=== PATIENT | female | born 1985 ===

== ENCOUNTER 2016-11-28 06:44 | Day surgery (SDC) | payer OTHER ==
[2016-11-15 08:08] VITALS: BMI 28.3
[2016-11-28] MEDS ORDERED: Midazolam 2 MG/2 ML VIAL ONE (08:30)
[2016-11-28] MEDS ORDERED: Propofol 10 mg/ml Inj (20 ML) ONE (08:30)
[2016-11-28] MEDS ORDERED: Lactated Ringer's 1,000 ML IV ONE (08:30)
[2016-11-28] MEDS ORDERED: ceFAZolin IV 2 gm in Dextrose 50 ML IVPB ONE (08:45)
[2016-11-28] MEDS ORDERED: Bupivacaine/Epi 0.25%-1:200,000 10 ml PF inj IJ ONE (09:07)
[2016-11-28] MEDS ORDERED: Lidocaine 1% Inj (20ml) ONE (09:08)
[2016-11-28] MEDS ORDERED: Rocuronium 10 mg/ml (5 ml) ONE (09:31)
[2016-11-28] MEDS ORDERED: Succinylcholine Chloride 20 mg/ml Syr (5 ml) IV ONE (09:31)
[2016-11-28] MEDS ORDERED: HYDROmorphone 0.5 mg/0.5 ml ISec IVP PRN (09:50)
--- NOTE | 2016-11-28 09:57 | PCM.SURG1 ---
Surgeon's Initial Post Op Note - Surgeon's Notes Surgeon: Dr. Urbina Energy Sales Consultant: Dr. Moore PGY-2 Type of Anesthesia: General Endo Pre-Operative Diagnosis: Left axillary mass Operative Findings: see operative report Post-Operative Diagnosis: Left axillary mass Operation Performed: Excision of left axillary mass Specimen/Specimens Removed: left axillary mass Estimated Blood Loss: EBL {In ML}: 15 Blood Products Given: N/A Drains Used: No Drains Post-Op Condition: Good Date of Surgery/Procedure: 11/28/16 Time of Surgery/Procedure: 09:57
[2016-11-28] MEDS ORDERED: Lactated Ringer's 1,000 ML IV SCH (10:00)
--- NOTE | 2016-11-28 10:07 | OP ---
PROCEDURE DATE: 11/28/2016 PREOPERATIVE DIAGNOSIS: Left axillary mass. POSTOPERATIVE DIAGNOSIS: Left axillary mass. PROCEDURE DONE: 1. Excision of left axillary mass 5 x 4 cm size. 2. Layered closure of the wound, 5 x 4 cm size. SURGEON: Atul Urbina MD. DANCE TEACHER: Janice Moore, PGY-2 resident. ANESTHESIA: General endotracheal tube anesthesia. ESTIMATED BLOOD LOSS: Around 10 mL. DRAINS: None. PATHOLOGY: The left axillary mass was sent for pathology. COMPLICATIONS: None. INTRAOPERATIVE FINDINGS: The patient had irregularly-shaped 5 x 4 cm left axillary mass. INTRAOPERATIVE STEPS: This 31-year-old female who was diagnosed with left axillary mass, and the pat ient was consented for excision of the left axillary mass, brought to the OR, placed supine on the op erating table. After induction of the anesthesia, the left axilla and the chest was prepped and drap ed in a usual sterile fashion. The elliptical incision was made surrounding the axillary mass. Afte r incising skin and subcutaneous tissue, the dissection was carried down up to the clavipectoral fasc ia, and the mass was completely excised, and it was sent to the table for pathology. The wound was c losed in multiple layers, the deep subcutaneous tissue and fat with 2-0 Vicryl, superficial layer wit h 3-0 Vicryl, and skin with a 4-0 Monocryl. Dry sterile dressing was applied. The patient tolerated the procedure well. Count of instruments and gauze was correct. There was no apparent complication . The patient was extubated in the OR, sent to the postanesthesia care unit in stable condition. Atul Urbina MD cc: [id number] TT: 11/28/2016 10:06:48 jn
[2016-11-28] MEDS ORDERED: Lactated Ringer's 500 ML IV ONE (10:35)
[2016-11-28 10:51] VITALS: O2SAT 100
[2016-11-28 11:53] VITALS: BP 90/70; PULSE 92; RESP 18; TEMP 97.2
== END 2016-11-28 12:17 | disposition home or self-care (01) ==
LOC: C.SDS 06:44
PROVIDERS: ATTEND Surgery Surgical Critical Care
DX: D36.12 Benign neoplasm of peripheral nerves and autonomic nervous system, upper limb, including shoulder (principal)
CPT/HCPCS: 64788; 88307; 88342; J0690; J1170; J1885; J2250; J2405; J2704; J2765; J3010; J7120

== ENCOUNTER 2017-10-23 05:55 | Day surgery (SDC) | payer OTHER ==
[2016-11-15 08:07] VITALS: BMI 28.3
[2017-10-23] MEDS ORDERED: ceFAZolin IV 1 gm in Dextrose 1 GM/50 ML BAG IVPB ONE (07:27)
[2017-10-23] MEDS ORDERED: Propofol 10 mg/ml Inj (20 ML) ONE (07:27)
[2017-10-23] MEDS ORDERED: Midazolam 2 MG/2 ML VIAL ONE (07:27)
[2017-10-23] MEDS: Lidocaine/Epinephrine 1% 1:100000 10 ML IJ ONE ×2 (07:30→07:51)
[2017-10-23] MEDS: Bupivacaine HCl 0.25% PF (10 ml) Inj ONE ×2 (07:30→07:51)
[2017-10-23] MEDS ORDERED: Lidocaine Hydrochloride 10 ML INJ ONE (07:56)
[2017-10-23] MEDS ORDERED: HYDROmorphone 0.5 mg/0.5 ml ISec IVP PRN (08:44)
--- NOTE | 2017-10-23 08:44 | PCM.SURG1 ---
Surgeon's Initial Post Op Note - Surgeon's Notes Surgeon: Dr. Urbina Endoscopy Technican: Dr. Tobin, PGY-3 Type of Anesthesia: General LMA Anesthesia Administered By: Dr. Moore Pre-Operative Diagnosis: Neurofibromatosis Operative Findings: See operative report Post-Operative Diagnosis: Same Operation Performed: Excision of L forearm & Left 4th digit neurofibromas 3 cm each Specimen/Specimens Removed: neurofibromas x 2 Estimated Blood Loss: EBL {In ML}: 20 Blood Products Given: N/A Drains Used: No Drains Post-Op Condition: Good Date of Surgery/Procedure: 10/23/17 Time of Surgery/Procedure: 08:44
[2017-10-23 10:20] VITALS: RESP 15; TEMP 97.3; O2SAT 100
[2017-10-23 10:45] VITALS: BP 107/71; PULSE 81
--- NOTE | 2017-10-24 03:37 | OP ---
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 PROCEDURE: 1. Excision of neurofibromatosis lesion of left forearm, 3 x 2 cm size. 2. Excision of neurofibromatosis lesion of left fourth digit dorsal, 2 x 3 cm size. SURGEON: Atul Urbina MD CORPORATE TAX PREPARER: Lauren Tobin, PGY-3 resident. TYPE OF ANESTHESIA: General endotracheal. ESTIMATED BLOOD LOSS: Around 10 mL. DRAINS: None. PATHOLOGY: Forearm neurofibromatosis and left fourth digit neurofibromatosis, sent for the pathology. COMPLICATIONS: None. INTRAOPERATIVE FINDINGS: The patient had approximately 3 x 2 cm neurofibromatosis of left forearm as well as left fourth digit. The patient also has neurofibromatosis all over. Only 2 fibromatosis lesion were symptomatic. DESCRIPTION OF PROCEDURE: On intraoperative steps, this is a 32-year-old female with known history of neurofibromatosis, and the patient was consented for excision of neurofibromatosis of painful left forearm and the left fourth digit lesion. The patient was brought to the OR, placed supine on operating table. After induction of anesthesia, the left forearm was prepped and draped in usual sterile fashion and local anesthesia was injected surrounding the left forearm fibromatosis. The upper and lower flap was created. Medial and lateral dissection was done. The lesion was completely excised from underlying soft tissue and it was sent off the table for pathology. The wound was irrigated. The wound was closed in 2 layers, subcu with 2-0 Vicryl, skin with 4-0 Monocryl, and dry sterile dressings applied. Now, similar elliptical incision was made on the left fourth digit mid phalanx transverse elliptical incision, after that upper and lower flap was created. Medial and lateral dissection was done. Neurofibromatosis was completely excised and it was sent off the table for the pathology. The wound was irrigated, the wound was closed in 2 layers, subcu with 2-0 Vicryl and skin with 4-0 Monocryl, and a dry sterile dressing was applied. The patient tolerated the procedure well. Count of the instrument and gauze was correct. There was no apparent complication. The patient was extubated in the OR, sent to the postanesthesia care unit in stable condition. Atul Urbina MD
== END 2017-10-23 10:43 | disposition home or self-care (01) ==
LOC: C.SDS 05:55
PROVIDERS: ATTEND Surgery Surgical Critical Care
DX: D36.12 Benign neoplasm of peripheral nerves and autonomic nervous system, upper limb, including shoulder (principal)
CPT/HCPCS: 64788; 88305; 88342; J0690; J1170; J2250; J2405; J2704; J3010

== ENCOUNTER 2017-12-15 06:50 | Day surgery (SDC) | payer OTHER ==
[2016-11-15 08:07] VITALS: BMI 28.3
[2017-12-15] MEDS ORDERED: Lidocaine/Epinephrine 1% 1:100000 10 ML IJ ONE (10:19)
[2017-12-15] MEDS ORDERED: Bupivacaine HCl 0.25% PF (30 ml) Inj ONE (10:19)
[2017-12-15] MEDS ORDERED: ceFAZolin 1 gm in NS 1 GM/100 ML BAG IVPB ONE (10:56)
[2017-12-15] MEDS ORDERED: Bacitracin Ointment 30 GM TUBE ONE (10:56)
[2017-12-15] MEDS ORDERED: Midazolam 2 MG/2 ML VIAL ONE (11:08)
[2017-12-15] MEDS ORDERED: Propofol 10 mg/ml Inj (20 ML) ONE ×2 (11:08→11:09)
[2017-12-15] MEDS ORDERED: Lactated Ringer's 1,000 ML IV ONE ×2 (11:10→12:45)
[2017-12-15] MEDS ORDERED: Lactated Ringer's 500 ML IV ONE (11:10)
[2017-12-15] MEDS ORDERED: Succinylcholine Chloride 20 mg/ml Syr (5 ml) IV ONE (11:12)
[2017-12-15] MEDS ORDERED: Oxycodone/Acetaminophen 5/325 mg Tab PO PRN (13:00)
--- NOTE | 2017-12-15 13:00 | PCM.SURG1 ---
Surgeon's Initial Post Op Note - Surgeon's Notes Surgeon: Dr. Urbina Flatcar Whacker: PGY1, Maggie LUGO Type of Anesthesia: General Endo Pre-Operative Diagnosis: Neurofibromatosis Operative Findings: mulitple skin lesions. for details see op note Post-Operative Diagnosis: as above Operation Performed: excision of multiple skin lesions on left scalp and neck Specimen/Specimens Removed: left anterior middle neck. posterior scalp Estimated Blood Loss: EBL {In ML}: 20 Drains Used: No Drains Post-Op Condition: Good Date of Surgery/Procedure: 12/15/17 Time of Surgery/Procedure: 13:00
[2017-12-15] MEDS ORDERED: HYDROmorphone 0.5 mg/0.5 ml ISec IVP PRN (13:05)
[2017-12-15 14:34] VITALS: O2SAT 99
[2017-12-15 15:45] VITALS: BP 114/73; PULSE 97; RESP 18; TEMP 97.9
--- NOTE | 2017-12-16 03:44 | OP ---
PROCEDURE DATE: 12/15/2017 PREOPERATIVE DIAGNOSES: 1. Neck pain and left-sided headache at the site of neurofibromatosis. 2. Multiple neurofibromatosis. POSTOPERATIVE DIAGNOSES: 1. Neck pain and left-sided headache at the site of neurofibromatosis. 2. Multiple neurofibromatosis. PROCEDURES: 1. Excision of the left scalp neurofibromatosis nodule, anterior, 2 x 1 cm size. 2. Excision of the left scalp neurofibromatosis nodule, middle, 2 x 1 cm size. 3. Excision of the left scalp neurofibromatosis nodule, posterior one, 2 x 1 cm size. 4. Excision of the left scalp neurofibromatosis nodule, posterior two, 1 x 1 cm size. 5. Excision of the left scalp neurofibromatosis nodule, posterior three, 2 x 1 cm size. 6. Excision of the left neck neurofibromatosis, posterior one, 2 x 1 cm size. 7. Excision of the left neck neurofibromatosis, posterior two, 3 x 1 cm size. 8. Excision of the left neck neurofibromatosis nodule, middle one, 3 x 1 cm size. 9. Excision of the left neck neurofibromatosis nodule, middle two, 2 x 1 cm size. 10. Excision of the left neck neurofibromatosis nodule, anterior, 3 x 1 cm size. SURGEON: Atul Urbina MD ENTERPRISE APPLICATION DEVELOPER: BRITTNEY Floyd; and Tirso PGY-1, Resident. TYPE OF ANESTHESIA: General endotracheal tube anesthesia. ESTIMATED BLOOD LOSS: Around 20 mL for all the procedure together. COMPLICATIONS: None. INTRAOPERATIVE FINDINGS: The patient had multiple painful neurofibromatosis of the left scalp and the left neck area, and the patient also had multiple neurofibromatosis all over body. DESCRIPTION OF PROCEDURE: On intraoperative steps, this 32-year-old female, who was diagnosed with multiple neurofibromatoses of left scalp area that were painful recently, and the patient was consented for excision of the neurofibromatoses, brought to the OR, placed supine on the operating table. After induction of the anesthesia, the left neck and scalp area was prepped and draped in the usual sterile fashion. The first elliptical incision was made on left scalp anterior and the nodule was excised, in the left scalp medial area and the nodule was excised, and the elliptical incision was made on the left scalp posterior 1, 2, and 3 areas and the nodule was completely excised. Every time, the wound was irrigated, hemostasis was achieved and wound was closed in one layer with 4-0 nylon interrupted suture and now the left neck area elliptical incision was made at posterior 1 and 2, and posterior 1 and 2 neurofibroma was excised and the wound was closed in one layer with 4-0 nylon interrupted suture and then the elliptical incision was made surrounding the left neck medial 1 and 2 area and the neurofibromatosis was excised. Because the wound was deep and the wound was closed in 2 layers, the subcu with 3-0 Vicryl and skin with 4-0 nylon interrupted suture, and then an elliptical incision was made surrounding the left neck anterior neurofibromatosis. The wound was closed in 2 layers, the subcu with 3-0 Vicryl and the skin with 4-0 nylon interrupted suture and dry sterile dressing was applied. The patient tolerated the procedure well. Count of the instrument and gauze was correct. There was no apparent complication. The patient was extubated in the OR and sent to the Postanesthesia Care Unit in stable condition. Atul Ubrina MD
== END 2017-12-15 15:45 | disposition home or self-care (01) ==
LOC: C.OPSURG 06:50 → C.SDS 06:50
PROVIDERS: ATTEND Surgery Surgical Critical Care
DX: Q85.00 Neurofibromatosis, unspecified (principal); M54.2 Cervicalgia; R51 Headache
CPT/HCPCS: 64792; 88305; J0690; J2250; J2405; J2704; J3010; J7120

== ENCOUNTER 2018-05-29 14:21 | Emergency (ER) | payer MEDICAID, OTHER ==
[2018-05-29 14:21] VITALS: BMI 28.3
[2018-05-29 14:33] VITALS: RESP 20
[2018-05-29 14:47] LABS: HCG,QUALITATIVE URINE POSITIVE (NEGATIVE)
[2018-05-29 14:50] LABS: SQUAMOUS EPITHIAL 5 /hpf (0-5); URINE BILIRUBIN NEGATIVE (NEGATIVE); URINE BLOOD 2+ (NEGATIVE); URINE CLARITY Clear (Clear); URINE COLOR Yellow (YELLOW); URINE GLUCOSE (UA) NORMAL (Normal); URINE LEUKOCYTE ESTERASE NEG Leu/uL (Negative); URINE PROTEIN NEGATIVE (NEGATIVE); URINE UROBILINOGEN NORMAL mg/dL (0.2-1.0)
[2018-05-29 15:27] LABS: BASO % 0.4 % (0.0-2.0); EOS % 0.3 % (0.0-4.0); HEMOGLOBIN 12.2 g/dL (11.0-16.0); LYMPH # 0.9 K/uL (1.0-4.3); LYMPH % 10.8 % (20.0-40.0); MEAN CORPUSCULAR HEMOGLOBIN 29.4 pg (27.0-31.0); MEAN CORPUSCULAR HGB CONC 35.4 g/dL (33.0-37.0); MEAN PLATELET VOLUME 9.2 fL (7.2-11.7); MONO # 0.3 K/uL (0.0-0.8); MONO % 3.6 % (0.0-10.0); NEUT # 7.4 K/uL (1.8-7.0); NEUT % 84.9 % (50.0-75.0); RBC 4.16 Mil/uL (3.80-5.20); RED CELL DISTRIBUTION WIDTH 13.9 % (11.5-14.5); WHITE BLOOD COUNT 8.7 K/uL (4.8-10.8)
[2018-05-29 15:46] LABS: ALB/GLOB RATIO 1.3 (1.0-2.1); ALBUMIN 4.6 g/dL (3.5-5.0); ALT/SGPT 18 U/L (9-52); AST/SGOT 16 U/L (14-36); BLOOD UREA NITROGEN 12 mg/dL (7-17); CALCIUM 9.8 mg/dl (8.6-10.4); GFR NON-AFRICAN AMERICAN > 60
--- NOTE | 2018-05-29 16:09 | US ---
Date of service: 05/29/2018 Indication: Pain Comparison: Pelvis ultrasound performed 06/06/17 Technique: Transabdominal ultrasound. Findings: The uterus measures approximately 14.1 x 4.5 x 8.9 cm. Anteverted. Cervix length measures approximately 3.6 cm. There is a single intrauterine fetus present. 3 mm yolk sac. The gestational sac measures 4.9 cm and is compatible with a gestational age of 10 weeks 4 days. The crown-rump length measures 2.3 cm and is compatible with a gestational age of 9 weeks 0 days. Evidence of subchorionic hemorrhage which measures 1.4 x 0.7 x 1.1 cm and 1.0 x 1.3 x 1.2 cm. There is heart motion which measured 161.1 BPM. The right ovary measures 3.0 x 2.0 x 3.0 cm. The left ovary measures 2.3 x 1.3 x 2.7 cm. Blood flow was demonstrated to both ovaries. Impression: Live single intrauterine with estimated gestational age 10 weeks 4 days by gestational sac calculation and 9 weeks 0 days by crown-rump length calculation. heart rate 161.1 bpm. Advise an anomaly screen at 16-18 weeks gestational age Two regions of probable subchorionic hemorrhage measuring approximately 1.4 x 0.7 x 1.1 cm and 1.0 x 1.3 x 1.2 cm.
--- NOTE | 2018-05-29 16:32 | C.PDOC ---
History Of Present Illness 33 year old female, who is currently around 8 weeks (), presents to the ED for evaluation of vaginal spotting which began yesterday. Patient reports seeing brown/dark red blood when she wipes after urination. She was evaluated by her TELEVISION SERVICE ENGINEER two weeks ago, and had a negative ultrasound. Patient denies dysuria, urinary frequency, vaginal discharge, back pain or abdominal pain. Time Seen by Provider: 05/29/18 14:33 Chief Complaint (Nursing): Female Genitourinary History Per: Patient History/Exam Limitations: no limitations Onset/Duration Of Symptoms: Hrs Current Symptoms Are (Timing): Still Present Quality Of Discomfort: denies: "Pain" Associated Symptoms: denies: Back Pain, Urinary Symptoms Additional History Per: Patient Abnormal Vaginal Bleeding: Yes : 2 Para: 1 Past Medical History Reviewed: Historical Data, Nursing Documentation, Vital Signs Vital Signs: Last Vital Signs Temp 98.8 F 05/29/18 14:31 Pulse 106 H 05/29/18 14:31 Resp 20 05/29/18 14:31 BP 132/81 05/29/18 14:31 Pulse Ox 95 05/29/18 14:31 - Medical History PMH: No Chronic Diseases Denies: Chronic Kidney Disease Surgical History: Endoscopy - [facility] Procedures APPLICATION OF SPLINT (08/29/14) Family History: States: Unknown Family Hx - Social History Hx Tobacco Use: No Hx Alcohol Use: No Hx Substance Use: No Review Of Systems Gastrointestinal: Negative for: Abdominal Pain Genitourinary: Positive for: Vaginal Bleeding. Negative for: Dysuria, Frequency, Vaginal Discharge Musculoskeletal: Negative for: Back Pain Physical Exam - Physical Exam Appears: Non-toxic, No Acute Distress Skin: Normal Color, Warm, Dry Head: Atraumatic, Normacephalic Eye(s): bilateral: Normal Inspection Oral Mucosa: Moist Neck: Supple Chest: Symmetrical, No Deformity, No Tenderness Cardiovascular: Rhythm Regular Respiratory: Normal Breath Sounds, No Rales, No Rhonchi, No Wheezing Gastrointestinal/Abdominal: Soft, Tenderness (suprapubic ), No Guarding, No Rebound Extremity: Normal ROM, Capillary Refill (less than 2 seconds ) Neurological/Psych: Oriented x3, Normal Speech, Normal Cognition ED Course And Treatment - Laboratory Results Result Diagrams: 05/29/18 15:18 10/23/18 15:18 O2 Sat by Pulse Oximetry: 95 (on RA) Pulse Ox Interpretation: Normal - CT Scan/US ultrasound Other Rad Studies (CT/US): Read By Radiologist, Radiology Report Reviewed CT/US Interpretation: Date of service: 05/29/2018. Indication: Pain. Comparison: Pelvis ultrasound performed 06/06/17. Technique: Transabdominal ultrasound. Findings: The uterus measures approximately 14.1 x 4.5 x 8.9 cm. Anteverted. Cervix length measures approximately 3.6 cm. There is a single intrauterine fetus present. 3 mm yolk sac. The gestational sac measures 4.9 cm and is compatible with a gestational age of 10 weeks 4 days. The crown-rump length measures 2.3 cm and is compatible with a gestational age of 9 weeks 0 days. Evidence of subchorionic hemorrhage which measures 1.4 x 0.7 x 1.1 cm and 1.0 x 1.3 x 1.2 cm. There is heart motion which measured 161.1 BPM. The right ovary measures 3.0 x 2.0 x 3.0 cm. The left ovary measures 2.3 x 1.3 x 2.7 cm. Blood flow was demonstrated to both ovaries. Impression: Live single intrauterine with estimated gestational age 10 weeks 4 days by ge stational sac calculation and 9 weeks 0 days by crown-rump length calculation. heart rate 161.1 bpm. Advise an anomaly screen at 16-18 weeks gestational age. Two regions of probable subchorionic hemorrhage measuring approximately 1.4 x 0.7 x 1.1 cm and 1.0 x 1.3 x 1.2 cm. Progress Note: Bloodwork, urinalysis and ultrasound ordered and reviewed. On reassessment, patient is resting comfortably, showing no signs of distress and reports an improvement in her symptoms. Patient is stable for discharge and is advised to follow up with her TELEVISION SERVICE ENGINEER within 2-3 days for further evaluation. Advised to return to the ED if symptoms persist or worsen. Disposition - Disposition Disposition: HOME/ ROUTINE Disposition Time: 16:30 Condition: STABLE Additional Instructions: Moe un seguimiento con delgadillo OB / ER en 2-3 casarez para mireya nueva evaluacin. Regrese a la arpita de emergencias si los sntomas persisten o empeoran Instructions: Bleeding With (DC) Forms: [employer] (Kosovan) Print Language: WOLOF - Clinical Impression Clinical Impression: First trimester bleeding - PA / VARNISH FILTERER / Resident Statement MD/DO has reviewed & agrees with the documentation as recorded. - Scribe Statement The provider has reviewed the documentation as recorded by the Scribe (Savita Scott) All medical record entries made by the Scribe were at my direction and personally dictated by me. I have reviewed the chart and agree that the record accurately reflects my personal performance of the history, physical exam, medical decision making, and the department course for this patient. I have also personally directed, reviewed, and agree with the discharge instructions and disposition.
[2018-05-29 17:35] VITALS: BP 109/72; PULSE 74; TEMP 98.6; O2SAT 99
== END 2018-05-29 17:55 | disposition home or self-care (01) ==
LOC: C.ER 14:21
DX: O46.91 Antepartum hemorrhage, unspecified, first trimester (principal); Z3A.10 10 weeks gestation of pregnancy